=== PATIENT | female | born 1975 | race Caucasian/White ===

== ENCOUNTER 2016-12-18 06:55 | Observation (INO) | payer OTHER ==
[~2016-12-18] VITALS: Ht 160 cm; Wt 55.5 kg
[~2016-12-18 06:55] MED LIST: Z.0.NO CURRENT MEDS
[2016-12-18] MEDS ORDERED: SODIUM CHLORID 0.9% 500 ML IV PRN (07:45)
[2016-12-18] MEDS ORDERED: POVIDONE IODINE 5% (ANTISEPSIS KIT) 4 APPLICATIONS EACH NARE PRN (07:45)
[2016-12-18] MEDS ORDERED: INSULIN HUMAN REGULAR 1,000 UNITS/10 ML VIAL SQ PRN (07:45)
[2016-12-18] MEDS ORDERED: METOPROLOL TARTRATE 25 MG TAB PO PRN (07:45)
[2016-12-18] MEDS ORDERED: CHLORHEXIDINE GLUCONATE 2 % 1 PACK (2 CLOTHS) TOPICAL PRN (07:45)
[2016-12-18] MEDS ORDERED: LACTATED RINGER'S 1000 ML IV PRN (07:45)
[2016-12-18] MEDS ORDERED: ceFAZolin 2 GM PREMIX 50 ML IV SCH (07:45)
--- NOTE | 2016-12-18 07:46 | HHI.HP ---
HPI Chief Complaint Fibroids and uterine pain Date Seen: Dec 18, 2016 Time Seen: 07:30 Travel History International Travel<30 Days: No Contact w/Intl Traveler<30Days: No Known Affected Area: No History of Present Illness HPI 41 yo who has had one CS and has fibroid uterus causing pain and pressure affecting her life wants definitive therapy. she does not want children and has not had relief on OCP Para: 1 : 2 : 1 History Past Medical History Narrative Medical rheumatoid arthritis Obstetric History Obstetric History x1 Past Surgical History Narrative Surgical above Family History Family History: Negative Social History Alcohol Use: Yes Tobacco Use: No Substance Abuse: No Allergies-Medications (Allergen,Severity, Reaction): Coded Allergies: Ampicillin (Verified Allergy, Intermediate, STUFFY NOSE AND BLOCHY FACE, ) Home Meds Reported Medications Miscellaneous (No Current Meds) [facility] 06/22/07 Review of Systems Except as stated in HPI: all other systems reviewed are Neg Physical Exam Narrative GENERAL: Well-nourished, well-developed patient. SKIN: Warm and dry. HEAD: Normocephalic and atraumatic. EYES: No scleral icterus. No injection or drainage. ENT: No nasal drainage noted. Mucous membranes pink. Airway patent. NECK: Supple, trachea midline. No JVD. CARDIOVASCULAR: Regular rate and rhythm without murmurs, gallops, or rubs. RESPIRATORY: Breath sounds equal bilaterally. No accessory muscle use. BREASTS: Bilateral exam showed no masses , no retractions, no nipple discharge. ABDOMEN/GI: Abdomen soft, non-tender, bowel sounds present, no rebound, no guarding Gravid to [-] weeks size Fundal Height: [-] GENITOURINARY: External Genitalia: intact and normal in appearance BUS glands: [-] Cervix: [-] Dilatation: [-] Effacement: [-] Station: [-] Presentation: [-] Membranes: [intact or ruptured] Uterine Contractions: [-] FHT's: Category: [-] Baseline: [-] Reactive: [-] Variability: [-] Decels: [-] EXTREMITIES: No cyanosis or edema. BACK: Nontender without obvious deformity. No CVA tenderness. NEUROLOGICAL: Awake and alert. Motor and sensory grossly within normal limits. Five out of 5 muscle strength in all muscle groups. Normal speech. Data Data Vital Signs Reviewed: Yes Orders Complete Blood Count With Diff (12/18/16 07:07) Type And Screen (12/18/16 07:07) Bhcg Screen Qualitative (12/18/16 07:07) Cefazolin 2 Gm Premix (Ancef 2 Gm Premix (12/18/16 07:45) Lactated Ringer's 1000 Ml Inj (Lr 1000 M (12/18/16 07:45) Sodium Chlorid 0.9% 500 Ml Inj (Ns 500 M (12/18/16 07:45) Metoprolol Tartrate (Lopressor) (12/18/16 07:45) Povidone Iod 5% Antisepsis Kit (Betadine (12/18/16 07:45) Chlorhexidine 2% Cloth (Chlorhexidine 2% (12/18/16 07:45) Insulin Human Regular Inj (Novolin R Inj (12/18/16 07:45) Assessment/Plan Problem List: (1) Intramural leiomyoma of uterus Assessment and Plan For [facility] bilateral salpingectomy Avinash Shelton MD Dec 18, 2016 07:46
[2016-12-18] MEDS ORDERED: VITA100064 PO (07:48)
[2016-12-18] MEDS ORDERED: VITA10002 PO (07:48)
[2016-12-18] MEDS ORDERED: BIOTCAP PO (07:48)
[2016-12-18] MEDS ORDERED: SULF500T39 PO (07:48)
[2016-12-18 07:52] VITALS: BP 126/84; PULSE 92; RESP 18; TEMP 98.8; O2SAT 98
[2016-12-18 07:53] LABS: AUTOMATED NEUTROPHIL # 2.1 TH/MM3 (1.8-7.7); BASOPHIL % 0.7 % (0.0-2.0); HEMATOCRIT 33.5 % (35.0-46.0); HEMO FLAGS DIFF FINAL; LYMPH % 37.9 % (9.0-44.0); LYMPHOCYTE # 1.6 TH/MM3 (1.0-4.8); MEAN CELL VOLUME 89.1 FL (80.0-100.0); MEAN CORPUSCULAR HEMOGLOBIN 30.7 PG (27.0-34.0); MEAN CORPUSCULAR HGB CONC 34.4 % (32.0-36.0); MONO % 10.6 % (0.0-8.0); NEUT % 50.8 % (16.0-70.0); PLATELET COUNT 203 TH/MM3 (150-450); RED BLOOD COUNT 3.75 MIL/MM3 (4.00-5.30); RED CELL DISTRIBUTION WIDTH 13.6 % (11.6-17.2); WHITE BLOOD COUNT 4.2 TH/MM3 (4.0-11.0)
[2016-12-18] MEDS ORDERED: fentaNYL CITRATE 250 MCG/5 ML AMP ONE ×2 (08:35→11:42)
[2016-12-18] MEDS ORDERED: ACETAMINOPHEN 1000 MG/100 ML VIAL IV ONE (08:43)
[2016-12-18] MEDS ORDERED: MIDAZOLAM HCL 2 MG/2 ML VIAL ONE (08:43)
[2016-12-18] MEDS ORDERED: MICROFIBRILLAR COLLAGEN HEMOSTAT 1 GM PKT ONE (08:44)
[2016-12-18] MEDS ORDERED: MICROFIBRILLAR COLLAGEN HEMOSTAT 70 X 35 MM BANDAGE ONE (08:44)
[2016-12-18] MEDS ORDERED: BUPIVACAINE/EPINEPHRINE 0.5% 50 ML VIAL INFIL ONE (09:33)
[2016-12-18] MEDS ORDERED: DEXAMETHASONE SOD PHOS PF 10 MG/ML VIAL IV ONE (10:37)
[2016-12-18] MEDS ORDERED: BUPIVACAINE LIPOSOME PF 1.3% 20 ML VIAL NERV BLOCK ONE (10:38)
--- NOTE | 2016-12-18 11:23 | HHI.DCPOC ---
Discharge Care Plan Diagnosis: (1) Intramural leiomyoma of uterus Report Symptoms to Your Doctor -Temperate above 100.5 degrees -Redness, of incision or excessive or foul smelling drainage -Unusual pain or calf pain -Increased vaginal bleeding -Painful or difficulty urinating -Feelings of extreme sadness or anxiety after 2 weeks Goals to Promote Your Health * To prevent worsening of your condition and complications * To maintain your health at the optimal level Directions to Meet Your Goals Take your medications as prescribed Follow your dietary instruction Follow activity as directed Ensure plenty of rest for recovery Drink fluids for hydration Keep your appointments as scheduled Take your immunizations and boosters as scheduled If your symptoms worsen call your PCP, if no PCP go to Urgent Care Center or Emergency Room Smoking is Dangerous to Your Health. Avoid second hand smoke Call the 24-hour crisis hotline for domestic abuse at Avinash Shelton MD Dec 18, 2016 11:23
[2016-12-18] MEDS ORDERED: OXYC1TAB63 PO (11:26)
[2016-12-18] MEDS ORDERED: ONDANSETRON HCL 4 MG/2 ML VIAL IVP PRN (11:30)
[2016-12-18] MEDS ORDERED: IBUPROFEN 600 MG TAB PO PRN (11:30)
[2016-12-18] MEDS ORDERED: oxyCODONE/ACETAMINOPHEN 5 MG/325 MG TAB PO PRN (11:30)
[2016-12-18] MEDS ORDERED: HYDROmorphone HCL PF 1 MG/ML VIAL IVP PRN (11:30)
[2016-12-18] MEDS ORDERED: diphenhydrAMINE HCL 25 MG CAP PO PRN (11:30)
[2016-12-18] MEDS ORDERED: KETOROLAC TROMETHAMINE 30 MG/ML (IVP) VIAL IVP PRN (11:30)
[2016-12-18] MEDS ORDERED: SODIUM CHLORIDE 0.9% FLUSH 10 ML FLUSH IV FLUSH PRN (11:30)
--- NOTE | 2016-12-18 11:31 | PD.OP ---
Operative Report Date of Surgery: Dec 18, 2016 Preoperative Diagnosis: (1) Intramural leiomyoma of uterus Postoperative Diagnosis: (1) Intramural leiomyoma of uterus Procedure: LASH bilateral salpingectomy Surgeon: Avinash Shelton Manager Net(s): Avinash Marrufo MD Dec 18, 2016 11:31
[2016-12-18] MEDS ORDERED: DO NOT ADM ANY ANTICOAGULANT DRUGS PRN (11:38)
[2016-12-18] MEDS ORDERED: NEOSTIGMINE 3 MG/3 ML SYR IV ONE (12:00)
[2016-12-18] MEDS ORDERED: KETOROLAC TROMETHAMINE 60 MG/2 ML (IM) VIAL IM ONE (12:00)
[2016-12-18] MEDS ORDERED: ONDANSETRON HCL 4 MG/2 ML VIAL IV PUSH ONE (12:00)
[2016-12-18] MEDS ORDERED: PROPOFOL 200 MG/20 ML AMP IV ONE (12:00)
[2016-12-18 13:00] VITALS: BP 92/72; PULSE 80; RESP 12; TEMP 96.1; O2SAT 100
[2016-12-18 16:00] VITALS: BP 94/71; PULSE 79; RESP 12; TEMP 96.3; O2SAT 99
[2016-12-18] MEDS: oxyCODONE/ACETAMINOPHEN 5 MG/325 MG TAB PO PRN ×2 (18:41→22:47)
[2016-12-18 20:00] VITALS: BP 108/66; PULSE 90; RESP 16; TEMP 98.3; O2SAT 99
[2016-12-18] MEDS: SODIUM CHLORIDE 0.9% FLUSH 10 ML FLUSH IV FLUSH SCH (22:47)
[2016-12-19] VITALS: BP 107/61; PULSE 88; RESP 16; TEMP 97.7; O2SAT 99
[2016-12-19] MEDS: oxyCODONE/ACETAMINOPHEN 5 MG/325 MG TAB PO PRN ×3 (03:42→09:13)
[2016-12-19 04:00] VITALS: BP 91/54; PULSE 90; RESP 16; TEMP 97.6; O2SAT 98
[2016-12-19 05:57] LABS: AUTOMATED NEUTROPHIL # 4.7 TH/MM3 (1.8-7.7); BASOPHIL % 0.1 % (0.0-2.0); HEMATOCRIT 26.1 % (35.0-46.0); HEMO FLAGS DIFF FINAL; LYMPH % 24.1 % (9.0-44.0); LYMPHOCYTE # 1.7 TH/MM3 (1.0-4.8); MEAN CELL VOLUME 90.6 FL (80.0-100.0); MEAN CORPUSCULAR HEMOGLOBIN 31.6 PG (27.0-34.0); MEAN CORPUSCULAR HGB CONC 34.9 % (32.0-36.0); MONO % 9.9 % (0.0-8.0); NEUT % 65.9 % (16.0-70.0); PLATELET COUNT 161 TH/MM3 (150-450); RED BLOOD COUNT 2.88 MIL/MM3 (4.00-5.30); RED CELL DISTRIBUTION WIDTH 13.3 % (11.6-17.2); WHITE BLOOD COUNT 7.1 TH/MM3 (4.0-11.0)
--- NOTE | 2016-12-19 07:13 | HHI.PR ---
Subjective Remarks Doing well, pain is well controlled, eating well. Objective Vital Signs Vital Signs Date Time Temp Pulse Resp B/P Pulse Ox O2 Delivery O2 Flow Rate FiO2 12/19/16 04:00 97.6 90 16 91/54 98 12/19/16 00:00 97.7 88 16 107/61 99 12/18/16 20:00 98.3 90 16 108/66 99 12/18/16 16:00 96.3 79 12 94/71 99 12/18/16 13:00 96.1 80 12 92/72 100 12/18/16 12:00 97.5 79 14 117/71 99 Room Air 12/18/16 11:45 79 14 119/76 100 Room Air 12/18/16 11:36 96.9 92 14 129/85 100 Nasal Cannula 2 12/18/16 07:52 98.8 92 18 126/84 98 I/O 12/18/16 12/18/16 12/18/16 12/19/16 12/19/16 12/19/16 07:00 15:00 23:00 07:00 15:00 23:00 Intake Total 1400 ml 720 ml 480 ml Output Total 450 ml 750 ml Balance 950 ml -30 ml 480 ml Intake Oral 720 ml 480 ml Other 1400 ml Output Urine Total 400 ml 750 ml Estimated Blood Loss 50 ml # Voids 2 Result Diagram: 12/19/16 0454 Objective Remarks Chest is clear, regular rate and rhythm. Abdomen is soft and non-distended. Incision is clean and dry. Ext no CCE. A/P Assessment and Plan Post Op Day 1 Doing well Home today and return to office in two weeks. Avinash Shelton MD Dec 19, 2016 07:12
--- NOTE | 2016-12-19 07:15 | HHI.DS ---
Admission Date Dec 18, 2016 at 11:22 Discharge Date: Dec 19, 2016 Admitting Diagnosis Diagnosis: (1) Intramural leiomyoma of uterus Diagnosis: Principal Brief History 41 yo who has had one CS and has fibroid uterus causing pain and pressure affecting her life wants definitive therapy. she does not want children and has not had relief on OCP Hospital Course Patient did well is now 24 hours post op. 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 Avinash Shelton MD New Medications: Oxycodone-Acetaminophen (Oxycodone-Acetaminophen) 5-325 mg Tab 2 TAB PO Q4H PRN PAIN SCALE 6 TO 10 #30 TAB Continued Medications: Cholecalciferol (Vitamin D) 1,000 Unit Tab 1000 UNITS PO DAILY Nutritional Supplement #1 Ref 0 BOTTLE Sulfasalazine (Sulfazine) 500 Mg Tab 500 MG PO Q12HR #120 Ref 0 TAB Discontinued Medications: Biotin (Biotin) 5 Mg Cap 5 MG PO Nutritional Supplement #1 Ref 0 BOTTLE Cyanocobalamin (Vitamin B-12) 1,000 Mcg Tab 1000 MCG PO DAILY Nutritional Supplement #1 Ref 0 BOTTLE Miscellaneous (No Current Meds) [facility] [place] Avinash Shelton MD Dec 19, 2016 07:15
[2016-12-19 08:00] VITALS: BP 109/72; PULSE 105; RESP 18; TEMP 98.1; O2SAT 99
[2016-12-19] MEDS: SODIUM CHLORIDE 0.9% FLUSH 10 ML FLUSH IV FLUSH SCH (09:00)
--- NOTE | 2016-12-20 11:29 | MP ---
cc: SKY SHELTON M.D. DATE OF SURGERY: 12/18/2016 PROCEDURE Laparoscopic supracervical hysterectomy, bilateral salpingectomy. PREOPERATIVE DIAGNOSIS Large fibroid uterus, pelvic pain. POSTOPERATIVE DIAGNOSIS Large fibroid uterus, pelvic pain. SURGEON Dr. Sky Shelton. ESTIMATED BLOOD LOSS 200 ccs. COMPLICATIONS None. FINDINGS Large fibroid uterus with two large fibroids, normal fallopian tubes and ovaries bilaterally. ANESTHESIA General, by Dr. Royal. PROCEDURE IN DETAIL After informed consent, the patient was taken to the operating room where she placed under general anesthesia, placed in [facility]. The abdomen, peritoneum and vagina were prepped and draped in normal sterile fashion. Time-out was taken and Hayes catheter was draining well. After adequate anesthesia was assured, time-out was taken and everybody agreed with the procedure. We proceeded to put a speculum into the vagina. Cervix was grasped with a single-tooth tenaculum. We placed acorn uterine manipulator. At this point gloves were changed. A 5 mm infraumbilical incision was then made, after injection of 0.25% Marcaine with epinephrine, we entered the abdomen under direct visualization. Left and right lower quadrant trocars were placed under direct visualization after injection with 0.5% Marcaine with epinephrine. The abdomen was insufflated, upper abdomen was normal, lower abdomen was normal except for this large fibroid uterus and a previous section with scar tissue of the bladder. Using harmonic scalpel we came underneath fallopian tubes and came across the mesosalpinx and removed fallopian tubes bilaterally from the uterus. At this point we came across utero-ovarian ligament and down the broad ligament to level of the round ligament where these were both transected with good hemostasis with the Harmonic scalpel. Bladder flap was created by dissecting the bladder off the lower uterine segment and dissecting it down off the cervix, moderate adhesions were encountered. At this point uterine arteries were cauterized and cut with the Harmonic scalpel bilaterally. Good hemostasis was achieved, avoiding any injury to pelvic sidewall structures. We then came across the cervix and amputated the uterus from the cervix. Good hemostasis was achieved. The pelvis was irrigated well, good hemostasis was achieved at all pedicles. Fallopian tubes had already been removed. At this point there was a 10 cm incision made suprapubically. The uterus was brought through the incision. We pulled the uterus out, bivalving the uterus but not having to morcellate. We removed the uterus with two large fibroids without difficulty. Good hemostasis was achieved. The fascia was closed with #1 Vicryl. The incisions were closed with 4-0 Monocryl. The patient tolerated the procedure well. She was taken to the recovery room in stable condition. Hayes catheter would be removed. The patient will go to the floor and possibly discharged home today. MD STANISLAW Orozco/TLL /11:35 AM /11:20 AM
== END 2016-12-19 10:52 | disposition home or self-care (01) ==
LOC: HSDC 06:55 → HSDI 11:22 → HOCA 12:23
PROVIDERS: ADMIT Obstetrics & Gynecology; ATTEND Obstetrics & Gynecology
DX: D25.1 Intramural leiomyoma of uterus (principal); N80.0 Endometriosis of uterus; M06.9 Rheumatoid arthritis, unspecified; Z88.1 Allergy status to other antibiotic agents
CPT/HCPCS: 00840; 58544; 64450; 84703; 85025; 86850; 86900; 86901; 88307; C9290; G0378; J0131; J0690; J1100; J1885; J2250; J2405; J2710; J3010; J7120